=== PATIENT | female | born 1975 | race Caucasian/White ===

== ENCOUNTER 2020-01-20 16:54 | Emergency (ER) | payer OTHER ==
[2020-01-20 17:29] VITALS: BP 131/85; PULSE 66; TEMP 98.1; BMI 25.7
[2020-01-20] MEDS ORDERED: KETOROLAC TROMETHAMINE 30 MG/1 ML VIAL IM ONE (18:15)
[2020-01-20] MEDS ORDERED: KETOROLAC TROMETHAMINE 30 MG/1 ML VIAL ONE (18:16)
== END 2020-01-20 18:51 | disposition home or self-care (01) ==
LOC: JERFT 16:54 → JER 16:54 → JERFT 18:51
PROC: 3E0233Z Introduction of Anti-inflammatory into Muscle, Percutaneous Approach (ICD-10-PCS; principal; 2020-01-20)
DX: M54.42 Lumbago with sciatica, left side (principal)
CPT/HCPCS: 99284-25; C9803; U0003

== ENCOUNTER 2020-01-27 09:21 | Emergency (ER) | payer OTHER ==
[2020-01-27 09:37] VITALS: BP 140/93; PULSE 85; TEMP 98.3; BMI 24.7
== END 2020-01-27 10:10 | disposition left against medical advice (07) ==
LOC: JER 09:21
DX: F16.94 Hallucinogen use, unspecified with hallucinogen-induced mood disorder (principal)
CPT/HCPCS: 99281-25

== ENCOUNTER 2020-01-28 21:18 | Inpatient (IN) | payer OTHER ==
[2020-01-28 21:32] VITALS: BMI 25.7
[2020-01-28] MEDS ORDERED: SODIUM CHLORIDE 0.9% 500 ML INFUS.BAG IV ONE (22:09)
[2020-01-28] MEDS ORDERED: ACETAMINOPHEN 1000 MG/100 ML VIAL (NON FORMULARY) IVPB ONE (22:09)
[2020-01-28] MEDS ORDERED: LIDOCAINE 1%/EPI 1:100000 (50 ML MULTI DOSE VIAL) INF ONE (22:40)
[2020-01-28] MEDS ORDERED: ACETAMINOPHEN INJECTION 100 ML IVPB ONE (22:51)
[2020-01-28 23:00] LABS: BASO % 0.2 % (0-2.0); EOS % 3.9 % (0-4.5); HEMATOCRIT 39.1 % (32.4-45.2); LYMPH % 32.4 % (8-40); MCH 33.6 pg (25.7-33.7); MCHC 33.3 g/dl (32.0-36.0); MEAN PLT VOLUME 10.1 fl (7.5-11.1); MONO % 7.9 % (3.8-10.2); NEUT % 55.6 % (42.8-82.8); PLATELET COUNT 186 K/MM3 (134-434); RBC 3.88 M/mm3 (3.60-5.2); WHITE BLOOD COUNT 8.2 K/mm3 (4.0-10.0)
[2020-01-28 23:06] LABS: PROTHROMBIN TIME (PATIENT) 12.1 SEC (9.7-13.0)
[2020-01-28 23:09] LABS: ACTIVATED PTT 25.5 SECONDS (25.2-36.5)
[2020-01-28 23:16] LABS: CHLORIDE 102 mmol/L (98-107); POTASSIUM 3.6 mmol/L (3.5-5.1); SODIUM 139 mmol/L (136-145)
[2020-01-28 23:19] LABS: ALBUMIN 3.3 g/dl (3.4-5.0); ANION GAP 9 MMOL/L (8-16); CO2 28 mmol/L (21-32); GLUCOSE,RANDOM 133 mg/dL (74-106); MAGNESIUM 1.7 mg/dL (1.8-2.4)
[2020-01-28 23:22] LABS: CREATININE 0.8 mg/dL (0.55-1.3); SGPT/ALT 17 U/L (13-61)
[2020-01-28 23:23] LABS: SGOT/AST 16 U/L (15-37)
[2020-01-28 23:24] LABS: BILIRUBIN,TOTAL 0.2 mg/dL (0.2-1); TOT PROT 6.6 g/dl (6.4-8.2)
[2020-01-28 23:25] LABS: ALK PHOS 103 U/L (45-117)
[2020-01-28] MEDS ORDERED: MAGNESIUM SULF 50% (8.12 MEQ/2 ML-1 GM VIAL) IVPB ONE (23:29)
[2020-01-28] MEDS ORDERED: MAGNESIUM SULFATE IN WATER 2 GM/50 ML IVPB IVPB ONE (23:39)
[2020-01-29] MEDS ORDERED: ACETAMINOPHEN 325 MG TABLET (FP) PO PRN (03:11)
[2020-01-29] MEDS ORDERED: ACETAMINOPHEN 325 MG TABLET (FP) ONE (04:31)
[2020-01-29 07:57] LABS: COCAINE, UR NEGATIVE ng/ml (CUTOFF=300); URINE BENZODIAZEPINES NEGATIVE ng/ml (CUTOFF=200)
[2020-01-29 07:58] LABS: METHADONE, UR NEGATIVE ng/ml (CUTOFF=300); OPIATES, URI NEGATIVE ng/ml (CUTOFF=300); URINE AMPHETAMINES NEGATIVE ng/ml (CUTOFF=500)
[2020-01-29 07:59] LABS: HEMATOCRIT 35.4 % (32.4-45.2); MCH 33.9 pg (25.7-33.7); MCHC 33.8 g/dl (32.0-36.0); MEAN CELL VOLUME 100.1 fl (80-96); MEAN PLT VOLUME 9.8 fl (7.5-11.1); PLATELET COUNT 167 K/MM3 (134-434); RBC 3.53 M/mm3 (3.60-5.2); RDW 13.6 % (11.6-15.6); WHITE BLOOD COUNT 9.1 K/mm3 (4.0-10.0)
[2020-01-29 08:17] LABS: POTASSIUM 3.9 mmol/L (3.5-5.1)
[2020-01-29 08:21] LABS: ALBUMIN 3.3 g/dl (3.4-5.0); BLOOD UREA NITROGEN 13.4 mg/dL (7-18); CALCIUM 8.8 mg/dL (8.5-10.1); MAGNESIUM 2.2 mg/dL (1.8-2.4)
[2020-01-29 08:24] LABS: CREATININE 0.6 mg/dL (0.55-1.3)
[2020-01-29 08:25] LABS: PHOSPHOROUS 4.6 mg/dL (2.5-4.9)
[2020-01-29 08:26] LABS: BILIRUBIN,TOTAL 0.3 mg/dL (0.2-1); TOT PROT 6.2 g/dl (6.4-8.2)
[2020-01-29 08:31] LABS: PHENCYCLIDINE,URINE POSITIVE ng/ml (CUTOFF=25); URINE BARBITURATES POSITIVE ng/ml (CUTOFF=200)
[2020-01-29 08:34] LABS: PH,URINE 5.5 (5.0-8.0); URINE APPEARANCE CLEAR; URINE BILIRUBIN NEGATIVE (NEGATIVE); URINE COLOR YELLOW; URINE GLUCOSE (UA) NEGATIVE (NEGATIVE); URINE KETONE NEGATIVE (NEGATIVE); URINE LEUK ESTERASE NEGATIVE (NEGATIVE); URINE NITRITE NEGATIVE (NEGATIVE); URINE PROTEIN NEGATIVE (NEGATIVE)
[2020-01-29] MEDS: KETOROLAC TROMETHAMINE 15 MG/ML VIAL IVPUSH PRN ×2 (09:57→22:35)
[2020-01-29] MEDS: ENOXAPARIN NA (PORCINE) 40 MG/0.4 ML DISP.SYRIN SQ SCH (09:57)
[2020-01-30 07:53] LABS: POTASSIUM 4.1 mmol/L (3.5-5.1)
[2020-01-30 07:55] LABS: HEMOGLOBIN 11.2 GM/dL (10.7-15.3); MCH 34.1 pg (25.7-33.7); MEAN CELL VOLUME 100.4 fl (80-96); MEAN PLT VOLUME 10.1 fl (7.5-11.1); PLATELET COUNT 132 K/MM3 (134-434); RBC 3.28 M/mm3 (3.60-5.2); RDW 13.1 % (11.6-15.6); WHITE BLOOD COUNT 5.5 K/mm3 (4.0-10.0)
[2020-01-30 08:03] LABS: CALCIUM 8.3 mg/dL (8.5-10.1); MAGNESIUM 1.8 mg/dL (1.8-2.4)
[2020-01-30 08:06] LABS: CREATININE 0.7 mg/dL (0.55-1.3)
[2020-01-30 08:07] LABS: PHOSPHOROUS 3.6 mg/dL (2.5-4.9)
[2020-01-30 08:08] LABS: BILIRUBIN,TOTAL 0.2 mg/dL (0.2-1); TOT PROT 5.5 g/dl (6.4-8.2)
[2020-01-30] MEDS: KETOROLAC TROMETHAMINE 15 MG/ML VIAL IVPUSH PRN (08:40)
[2020-01-30 09:32] VITALS: BP 99/57; PULSE 57; TEMP 98.1
[2020-01-30] MEDS: ENOXAPARIN NA (PORCINE) 40 MG/0.4 ML DISP.SYRIN SQ SCH (09:59)
[2020-01-30] MEDS ORDERED: PRIMIDONE 50 MG TABLET PO SCH (22:00)
== END 2020-01-30 15:00 | disposition home or self-care (01) | DRG 204 ==
LOC: JER 21:18 → JERBED 01-29 01:29 → J4W 01-29 04:44
PROVIDERS: ADMIT Hospitalist; ATTEND Student in an Organized Health Care Education/Training Program
PROC: 0HQ1XZZ Repair Face Skin, External Approach (ICD-10-PCS; principal; 2020-01-28)
DX: R55 Syncope and collapse (principal); S01.112A Laceration without foreign body of left eyelid and periocular area, initial encounter; F12.10 Cannabis abuse, uncomplicated; F16.10 Hallucinogen abuse, uncomplicated; M54.16 Radiculopathy, lumbar region; R53.1 Weakness; K86.89 Other specified diseases of pancreas; F17.200 Nicotine dependence, unspecified, uncomplicated; G40.802 Other epilepsy, not intractable, without status epilepticus; S00.12XA Contusion of left eyelid and periocular area, initial encounter; W18.30XA Fall on same level, unspecified, initial encounter; Y92.098 Other place in other non-institutional residence as the place of occurrence of the external cause
CPT/HCPCS: 36415; 70450-TC; 70480-TC; 71045-TC-FY; 72125-TC; 80053; 80307; 81003; 82550; 83735; 84100; 84484; 84703; 85025; 85027; 85610; 85730; 86850; 86900; 86901; 93005; 93010; 93306-TC; 93880-TC; 97116-GP; 97161-GP; 99285-25; C9803; J0131; U0003

== ENCOUNTER 2020-03-24 20:25 | Emergency (ER) | payer OTHER ==
[2020-03-24 20:50] VITALS: BP 111/71; PULSE 98; TEMP 98.3; BMI 25.9
[2020-03-24] MEDS ORDERED: MAG HYDROX/AL HYDROX/SIMETH 30 ML UNIT-DOSE CUP PO ONE (21:13)
[2020-03-24] MEDS ORDERED: LACTATED RINGERS SOLUTION 1000 ML INFUS.BAG IV ONE (21:13)
[2020-03-24] MEDS ORDERED: FAMOTIDINE 20 MG/50 ML IVPB 20 MG/50 ML MG IVPB ONE ×2 (21:13→21:46)
[2020-03-24] MEDS ORDERED: METOCLOPRAMIDE HCL INJECTION 10 MG/2 ML VIAL IVPUSH ONE (21:27)
[2020-03-24] MEDS ORDERED: MAG HYDROX/AL HYDROX/SIMETH 30 ML UNIT-DOSE CUP ONE (21:46)
[2020-03-24] MEDS ORDERED: METOCLOPRAMIDE HCL INJECTION 10 MG/2 ML VIAL ONE (21:46)
[2020-03-24 21:50] LABS: BASO % 0.6 % (0-2.0); EOS % 1.4 % (0-4.5); HEMATOCRIT 40.4 % (32.4-45.2); LYMPH % 34.3 % (8-40); MCH 33.8 pg (25.7-33.7); MCHC 34.7 g/dl (32.0-36.0); MEAN CELL VOLUME 97.7 fl (80-96); MEAN PLT VOLUME 9.2 fl (7.5-11.1); MONO % 6.5 % (3.8-10.2); NEUT % 57.2 % (42.8-82.8); PLATELET COUNT 193 K/MM3 (134-434); RBC 4.14 M/mm3 (3.60-5.2); RDW 13.1 % (11.6-15.6); WHITE BLOOD COUNT 7.7 K/mm3 (4.0-10.0)
[2020-03-24 22:00] LABS: POTASSIUM 3.5 mmol/L (3.5-5.1)
[2020-03-24 22:03] LABS: BLOOD UREA NITROGEN 11.6 mg/dL (7-18); CALCIUM 9.6 mg/dL (8.5-10.1)
[2020-03-24 22:08] LABS: BILIRUBIN,TOTAL 0.4 mg/dL (0.2-1); TOT PROT 7.5 g/dl (6.4-8.2)
== END 2020-03-24 23:39 | disposition home or self-care (01) ==
LOC: JER 20:25
PROC: 3E033GC Introduction of Other Therapeutic Substance into Peripheral Vein, Percutaneous Approach (ICD-10-PCS; principal; 2020-03-24)
PROC: 3E033GC Introduction of Other Therapeutic Substance into Peripheral Vein, Percutaneous Approach (ICD-10-PCS; 2020-03-24)
DX: R11.2 Nausea with vomiting, unspecified (principal)
CPT/HCPCS: 36415; 80053; 83690; 84703; 85025; 99284-25; C9803; U0003

== ENCOUNTER 2020-06-19 14:35 | Emergency (ER) | payer OTHER ==
[2020-06-19 14:44] VITALS: BP 101/66; PULSE 73; TEMP 98.5; BMI 27.4
== END 2020-06-19 15:24 | disposition home or self-care (01) ==
LOC: JERFT 14:35
DX: T81.49XA Infection following a procedure, other surgical site, initial encounter (principal); Z11.52 Encounter for screening for COVID-19
CPT/HCPCS: 99283-25; C9803; U0003; U0005

== ENCOUNTER 2020-07-21 21:15 | Emergency (ER) | payer OTHER ==
[2020-07-21 21:19] VITALS: BP 122/77; PULSE 95; TEMP 98.6; BMI 26.5
[2020-07-21] MEDS ORDERED: ACETAMINOPHEN 325 MG TABLET (FP) PO ONE (21:45)
[2020-07-21] MEDS ORDERED: DIPHTH,PERTUSS(ACELL),TET 0.5 ML DISP.SYRIN IM ONE ×2 (21:45→21:46)
[2020-07-21] MEDS ORDERED: ACETAMINOPHEN 325 MG TABLET (FP) ONE (21:46)
[2020-07-21] MEDS ORDERED: KETOROLAC TROMETHAMINE 30 MG/1 ML VIAL IVPUSH ONE (23:10)
[2020-07-21] MEDS ORDERED: KETOROLAC TROMETHAMINE 30 MG/1 ML VIAL IM ONE (23:17)
[2020-07-21] MEDS ORDERED: KETOROLAC TROMETHAMINE 30 MG/1 ML VIAL ONE (23:44)
== END 2020-07-22 00:40 | disposition home or self-care (01) ==
LOC: JER 21:15
PROC: 3E0234Z Introduction of Serum, Toxoid and Vaccine into Muscle, Percutaneous Approach (ICD-10-PCS; principal; 2020-07-21)
PROC: 3E0233Z Introduction of Anti-inflammatory into Muscle, Percutaneous Approach (ICD-10-PCS; 2020-07-21)
DX: F10.920 Alcohol use, unspecified with intoxication, uncomplicated (principal); S80.211A Abrasion, right knee, initial encounter; S02.5XXA Fracture of tooth (traumatic), initial encounter for closed fracture
CPT/HCPCS: 70450-TC; 70486-TC; 73564-TC-LT-FY; 73564-TC-RT-FY; 90471; 90715; 99285-25

== ENCOUNTER 2020-11-13 18:58 | Emergency (ER) | payer OTHER ==
[2020-11-13 19:33] VITALS: BP 156/91; PULSE 88; TEMP 98.1; BMI 25.8
== END 2020-11-13 19:46 | disposition left against medical advice (07) ==
LOC: JER 18:58
DX: R41.82 Altered mental status, unspecified (principal)
CPT/HCPCS: 99281-25

== ENCOUNTER 2020-11-14 15:53 | Inpatient (IN) | payer OTHER ==
[2020-11-14 14:11] VITALS: BMI 27.1
[2020-11-14] MEDS ORDERED: NICOTINE 10 MG CARTRIDGE (INHALER) IH PRN (19:17)
[2020-11-14] MEDS ORDERED: IBUPROFEN 400 MG TABLET (FP) PO PRN (19:17)
[2020-11-14] MEDS ORDERED: LOPERAMIDE HCL 2 MG CAPSULE PO PRN (19:17)
[2020-11-14] MEDS ORDERED: guaiFENesin 200 MG/10 ML 10 ML UNIT-DOSE CUPS PO PRN (19:17)
[2020-11-14] MEDS ORDERED: ACETAMINOPHEN 325 MG TABLET (FP) PO PRN (19:17)
[2020-11-14] MEDS ORDERED: MAGNESIUM HYDROX 2400MG/30ML ORAL SUSPENSION 30 ML CUP PO PRN (19:17)
[2020-11-14] MEDS ORDERED: MAGNESIUM CITRATE 300 ML BOTTLE PO PRN (19:17)
[2020-11-14] MEDS ORDERED: MAG HYDROX/AL HYDROX/SIMETH 30 ML UNIT-DOSE CUP PO PRN (19:17)
[2020-11-14] MEDS ORDERED: P-EPHED 60MG/TRIPROLIDI 2.5MG TABLET PO PRN (19:17)
[2020-11-14] MEDS ORDERED: PATIENT'S OWN MEDICATION (NON-FORMULARY) (Butalb/Acetaminophen/Caffeine [Fioricet 50-300-4 PO PRN (19:23)
[2020-11-14] MEDS ORDERED: TUBERCULIN PPD 5 TU/0.1ML VIAL ID ONE (21:03)
[2020-11-14] MEDS: MELATONIN 5 MG TABLETS PO SCH (22:23)
[2020-11-14] MEDS: hydrOXYzine PAMOATE 25 MG CAPSULE (FP) PO SCH (22:24)
[2020-11-14] MEDS: THIAMINE HCL 100 MG TABLET (FP) PO SCH (22:24)
[2020-11-14] MEDS: NICOTINE 14 MG/24 HOURS TOPICAL PATCH TD SCH (22:34)
[2020-11-15] MEDS: hydrOXYzine PAMOATE 25 MG CAPSULE (FP) PO SCH ×5 (06:33→23:30)
[2020-11-15 07:18] VITALS: BP 163/99; PULSE 66; TEMP 97.6
[2020-11-15 08:01] LABS: CALCIUM 9.1 mg/dL (8.5-10.1)
[2020-11-15 08:02] LABS: ALBUMIN 3.6 g/dl (3.4-5.0); BLOOD UREA NITROGEN 7.9 mg/dL (7-18); HEMATOCRIT 40.3 % (32.4-45.2); HEMOGLOBIN 13.9 GM/dL (10.7-15.3); MCH 34.4 pg (25.7-33.7); MCHC 34.6 g/dl (32.0-36.0); MEAN CELL VOLUME 99.4 fl (80-96); MEAN PLT VOLUME 8.8 fl (7.5-11.1); PLATELET COUNT 190 10^3/uL (134-434); RBC 4.05 M/mm3 (3.60-5.2); RDW 13.8 % (11.6-15.6); WHITE BLOOD COUNT 5.3 K/mm3 (4.0-10.0)
[2020-11-15 08:06] LABS: BILIRUBIN,TOTAL 0.5 mg/dL (0.2-1); TOT PROT 7.1 g/dl (6.4-8.2)
[2020-11-15 08:27] LABS: SYPHILIS W/ RPR CONF NON-REACTIVE (NONREACTIVE)
[2020-11-15] MEDS ORDERED: PRIMIDONE 50 MG TABLET PO SCH (10:00)
[2020-11-15] MEDS ORDERED: EXEMESTANE 25 MG TABLET PO SCH (10:00)
[2020-11-15] MEDS ORDERED: PANTOPRAZOLE 40 MG TABLET PO SCH (10:00)
[2020-11-15] MEDS ORDERED: FLUoxetine HCL 20 MG CAPSULE PO SCH (10:30)
[2020-11-15] MEDS ORDERED: DEXTROAMPHETAMINE/AMPHETAMINE 10 MG CAP.ER.24H PO SCH (10:45)
[2020-11-15] MEDS: NICOTINE 14 MG/24 HOURS TOPICAL PATCH TD SCH (11:01)
[2020-11-15] MEDS: GABAPENTIN 300 MG CAPSULE PO SCH ×2 (13:32→23:30)
[2020-11-15] MEDS: MELATONIN 5 MG TABLETS PO SCH (23:30)
[2020-11-15] MEDS: THIAMINE HCL 100 MG TABLET (FP) PO SCH (23:30)
[2020-11-16] MEDS ORDERED: LIPASE/PROTEASE/AMYLASE 36,000 UNIT CAPSULE PO SCH (07:00)
[2020-11-16] MEDS: GABAPENTIN 300 MG CAPSULE PO SCH (08:04)
[2020-11-16] MEDS: hydrOXYzine PAMOATE 25 MG CAPSULE (FP) PO SCH (08:04)
== END 2020-11-16 08:50 | disposition left against medical advice (07) | DRG 770 ==
LOC: YASAS 15:53 → Y5N 19:01
PROVIDERS: ADMIT Allergy & Immunology; ATTEND Allergy & Immunology
PROC: HZ42ZZZ Group Counseling for Substance Abuse Treatment, Cognitive-Behavioral (ICD-10-PCS; principal; 2020-11-14)
DX: F10.20 Alcohol dependence, uncomplicated (principal); F16.20 Hallucinogen dependence, uncomplicated; F12.20 Cannabis dependence, uncomplicated; F17.210 Nicotine dependence, cigarettes, uncomplicated; F19.282 Other psychoactive substance dependence with psychoactive substance-induced sleep disorder; F19.24 Other psychoactive substance dependence with psychoactive substance-induced mood disorder; F60.3 Borderline personality disorder; F41.9 Anxiety disorder, unspecified; F32.9 Major depressive disorder, single episode, unspecified; F43.10 Post-traumatic stress disorder, unspecified; K86.81 Exocrine pancreatic insufficiency; K21.9 Gastro-esophageal reflux disease without esophagitis; Z87.19 Personal history of other diseases of the digestive system; Z85.3 Personal history of malignant neoplasm of breast; Z91.410 Personal history of adult physical and sexual abuse
CPT/HCPCS: 36415; 80053; 81025; 85027; 86780; 86803; C9803; U0003; U0005

== ENCOUNTER 2021-03-09 23:10 | Emergency (ER) | payer OTHER ==
[2021-03-09 23:27] VITALS: BMI 26.5
[2021-03-09 23:49] LABS: BASO % 0.3 % (0-2.0); EOS % 2.5 % (0-4.5); HEMATOCRIT 38.1 % (32.4-45.2); HEMOGLOBIN 13.2 GM/dL (10.7-15.3); LYMPH % 28.6 % (8-40); MCH 33.2 pg (25.7-33.7); MCHC 34.5 g/dl (32.0-36.0); MEAN CELL VOLUME 96.1 fl (80-96); MEAN PLT VOLUME 8.6 fl (7.5-11.1); MONO % 9.1 % (3.8-10.2); NEUT % 59.5 % (42.8-82.8); PLATELET COUNT 195 10^3/uL (134-434); RBC 3.97 M/mm3 (3.60-5.2); RDW 13.9 % (11.6-15.6); WHITE BLOOD COUNT 6.7 K/mm3 (4.0-10.0)
[2021-03-09 23:55] LABS: INR 0.97 (0.83-1.09); PROTHROMBIN TIME (PATIENT) 11.2 SEC (9.7-13.0)
[2021-03-09 23:58] LABS: ACTIVATED PTT 26.3 SECONDS (25.2-36.5)
[2021-03-10] LABS: CHLORIDE 103 mmol/L (98-107); SODIUM 137 mmol/L (136-145)
[2021-03-10 00:03] LABS: ANION GAP 4 MMOL/L (8-16); BLOOD UREA NITROGEN 13.4 mg/dL (7-18); CALCIUM 9.5 mg/dL (8.5-10.1); CO2 29 mmol/L (21-32)
[2021-03-10 00:04] LABS: ALBUMIN 3.8 g/dl (3.4-5.0); GLUCOSE,RANDOM 102 mg/dL (74-106)
[2021-03-10 00:07] LABS: SGOT/AST 15 U/L (15-37); SGPT/ALT 22 U/L (13-61)
[2021-03-10 00:08] LABS: BILIRUBIN,TOTAL 0.4 mg/dL (0.2-1); TOT PROT 7.2 g/dl (6.4-8.2)
[2021-03-10 00:09] LABS: ALK PHOS 109 U/L (45-117)
[2021-03-10] MEDS ORDERED: SODIUM CHLORIDE 0.9% 500 ML INFUS.BAG IV ONE (03:55)
[2021-03-10] MEDS ORDERED: ACETAMINOPHEN INJECTION 100 ML IVPB ONE (04:02)
[2021-03-10] MEDS ORDERED: ACETAMINOPHEN 1000 MG/100 ML BAG IVPB ONE (04:02)
[2021-03-10 07:03] VITALS: TEMP 97.3
[2021-03-10 08:07] VITALS: BP 133/90; PULSE 76
== END 2021-03-10 10:17 | disposition home or self-care (01) ==
LOC: JER 23:10
PROC: 3E0333Z Introduction of Anti-inflammatory into Peripheral Vein, Percutaneous Approach (ICD-10-PCS; principal; 2021-03-09)
DX: R26.2 Difficulty in walking, not elsewhere classified (principal)
CPT/HCPCS: 36415; 70450-TC; 71045-TC-FY; 72125-TC; 80053; 80307; 82550; 84484; 84703; 85025; 85610; 85730; 93005; 93010; 99285-25; J0131

== ENCOUNTER 2021-03-25 18:24 | Emergency (ER) | payer OTHER ==
[2021-03-25 18:40] VITALS: TEMP 98.3; BMI 27.9
[2021-03-25] MEDS ORDERED: ACETAMINOPHEN 1000 MG/100 ML BAG IVPB ONE (19:27)
[2021-03-25] MEDS ORDERED: ACETAMINOPHEN INJECTION 100 ML IVPB ONE (20:00)
[2021-03-25] MEDS ORDERED: ACETAMINOPHEN 500 MG TABLET (FP) PO ONE (20:18)
[2021-03-25] MEDS ORDERED: KETOROLAC TROMETHAMINE 30 MG/1 ML VIAL IM ONE (20:19)
[2021-03-25] MEDS ORDERED: KETOROLAC TROMETHAMINE 30 MG/1 ML VIAL ONE (20:30)
[2021-03-25] MEDS ORDERED: ACETAMINOPHEN 500 MG TABLET (FP) ONE (20:34)
[2021-03-25 21:25] LABS: BASO % 0.2 % (0-2.0); HEMATOCRIT 37.1 % (32.4-45.2); HEMOGLOBIN 12.8 GM/dL (10.7-15.3); LYMPH % 33.1 % (8-40); MCH 33.4 pg (25.7-33.7); MCHC 34.6 g/dl (32.0-36.0); MEAN CELL VOLUME 96.7 fl (80-96); MEAN PLT VOLUME 8.2 fl (7.5-11.1); MONO % 9.2 % (3.8-10.2); NEUT % 55.5 % (42.8-82.8); PLATELET COUNT 195 10^3/uL (134-434); RBC 3.84 M/mm3 (3.60-5.2); RDW 14.4 % (11.6-15.6); WHITE BLOOD COUNT 7.4 K/mm3 (4.0-10.0)
[2021-03-25 21:26] LABS: INR 0.93 (0.83-1.09); PROTHROMBIN TIME (PATIENT) 10.7 SEC (9.7-13.0)
[2021-03-25 21:29] LABS: ACTIVATED PTT 24.9 SECONDS (25.2-36.5)
[2021-03-25 21:46] LABS: ALBUMIN 3.7 g/dl (3.4-5.0); CALCIUM 9.2 mg/dL (8.5-10.1); MAGNESIUM 2.1 mg/dL (1.8-2.4)
[2021-03-25 21:48] LABS: CREATININE 0.8 mg/dL (0.55-1.3)
[2021-03-25 21:49] LABS: BILIRUBIN,TOTAL 0.3 mg/dL (0.2-1); TOT PROT 7.2 g/dl (6.4-8.2)
[2021-03-25 23:14] VITALS: BP 121/78; PULSE 70
== END 2021-03-26 01:18 | disposition home or self-care (01) ==
LOC: JERFT 18:24 → JER 18:24
PROC: 3E0233Z Introduction of Anti-inflammatory into Muscle, Percutaneous Approach (ICD-10-PCS; principal; 2021-03-25)
DX: S42.291A Other displaced fracture of upper end of right humerus, initial encounter for closed fracture (principal); R55 Syncope and collapse; W01.0XXA Fall on same level from slipping, tripping and stumbling without subsequent striking against object, initial encounter
CPT/HCPCS: 36415; 71046-TC-FY; 71101-TC-RT-FY; 73010-TC-FY; 73030-TC-RT-FY; 80053; 82550; 83735; 84484; 84703; 85025; 85610; 85730; 93005; 93010; 99285-25

== ENCOUNTER 2021-06-04 21:00 | Emergency (ER) | payer OTHER ==
[2021-06-04 21:19] VITALS: BP 147/92; PULSE 79; TEMP 97.7; BMI 28.9
[2021-06-04 22:49] LABS: BASO % 0.3 % (0-2.0); EOS % 5.2 % (0-4.5); HEMATOCRIT 37.1 % (32.4-45.2); HEMOGLOBIN 13.2 GM/dL (10.7-15.3); LYMPH % 36.8 % (8-40); MCH 34.3 pg (25.7-33.7); MCHC 35.6 g/dl (32.0-36.0); MEAN CELL VOLUME 96.3 fl (80-96); MEAN PLT VOLUME 8.8 fl (7.5-11.1); MONO % 7.2 % (3.8-10.2); NEUT % 50.5 % (42.8-82.8); PLATELET COUNT 191 10^3/uL (134-434); RBC 3.85 M/mm3 (3.60-5.2); RDW 13.2 % (11.6-15.6); WHITE BLOOD COUNT 4.8 K/mm3 (4.0-10.0)
[2021-06-04 23:15] LABS: CALCIUM 9.2 mg/dL (8.5-10.1)
[2021-06-04 23:16] LABS: ALBUMIN 3.6 g/dl (3.4-5.0); BLOOD UREA NITROGEN 18.1 mg/dL (7-18); MAGNESIUM 1.9 mg/dL (1.8-2.4)
[2021-06-04 23:19] LABS: CREATININE 1.1 mg/dL (0.55-1.3)
[2021-06-04 23:21] LABS: BILIRUBIN,TOTAL 0.3 mg/dL (0.2-1); TOT PROT 7.1 g/dl (6.4-8.2)
[2021-06-05] MEDS ORDERED: KETOROLAC TROMETHAMINE 30 MG/1 ML VIAL IVPUSH ONE (00:43)
[2021-06-05] MEDS ORDERED: KETOROLAC TROMETHAMINE 15 MG/ML VIAL ONE (00:45)
[2021-06-05] MEDS ORDERED: KETOROLAC TROMETHAMINE 30 MG/1 ML VIAL IM ONE (00:52)
== END 2021-06-05 01:25 | disposition home or self-care (01) ==
LOC: JER 21:00
PROC: 3E0233Z Introduction of Anti-inflammatory into Muscle, Percutaneous Approach (ICD-10-PCS; principal; 2021-06-04)
DX: F16.129 Hallucinogen abuse with intoxication, unspecified (principal); R41.82 Altered mental status, unspecified
CPT/HCPCS: 36415; 70450-TC; 80053; 80307; 83735; 84484; 85025; 93005; 93010; 99285-25

== ENCOUNTER 2021-07-09 17:51 | Emergency (ER) | payer OTHER ==
[2021-07-09 18:10] VITALS: BP 101/74; PULSE 83; TEMP 97.9; BMI 26.5
[2021-07-09] MEDS ORDERED: KETOROLAC TROMETHAMINE 30 MG/1 ML VIAL IM ONE (18:58)
[2021-07-09] MEDS ORDERED: KETOROLAC TROMETHAMINE 30 MG/1 ML VIAL ONE (19:20)
== END 2021-07-09 20:35 | disposition home or self-care (01) ==
LOC: JER 17:51
PROC: 3E0233Z Introduction of Anti-inflammatory into Muscle, Percutaneous Approach (ICD-10-PCS; principal; 2021-07-09)
DX: S06.0X0A Concussion without loss of consciousness, initial encounter (principal); S01.81XA Laceration without foreign body of other part of head, initial encounter; W01.0XXA Fall on same level from slipping, tripping and stumbling without subsequent striking against object, initial encounter
CPT/HCPCS: 70450-TC; 73030-TC-RT-FY; 99284-25

== ENCOUNTER 2021-07-10 20:18 | Emergency (ER) | payer OTHER ==
[2021-07-10 21:05] VITALS: BP 112/78; PULSE 67; TEMP 98.3; BMI 26.5
[2021-07-10] MEDS ORDERED: traMADol HCL 50 MG TABLET PO ONE (21:29)
[2021-07-10] MEDS ORDERED: KETOROLAC TROMETHAMINE 30 MG/1 ML VIAL IM ONE (21:29)
[2021-07-10] MEDS ORDERED: KETOROLAC TROMETHAMINE 30 MG/1 ML VIAL ONE (21:30)
[2021-07-10] MEDS ORDERED: traMADol HCL 50 MG TABLET ONE (21:30)
== END 2021-07-10 22:00 | disposition home or self-care (01) ==
LOC: JER 20:18
PROC: 3E0233Z Introduction of Anti-inflammatory into Muscle, Percutaneous Approach (ICD-10-PCS; principal; 2021-07-10)
DX: M70.21 Olecranon bursitis, right elbow (principal); S80.211A Abrasion, right knee, initial encounter
CPT/HCPCS: 73070-TC-RT-FY; 73562-TC-RT-FY; 99284-25

== ENCOUNTER 2021-11-29 20:29 | Emergency (ER) | payer OTHER ==
[2021-11-29 20:37] VITALS: BP 125/78; PULSE 79; RESP 18; TEMP 98.1; BMI 28.3
[2021-11-29] MEDS ORDERED: KETOROLAC TROMETHAMINE 30 MG/1 ML VIAL IVPB ONE (21:40)
[2021-11-29] MEDS ORDERED: METOCLOPRAMIDE HCL INJECTION 10 MG/2 ML VIAL IVPUSH ONE (21:40)
[2021-11-29] MEDS ORDERED: SODIUM CHLORIDE 0.9% 500 ML INFUS.BAG IV ONE (21:42)
[2021-11-29] MEDS ORDERED: KETOROLAC TROMETHAMINE 30 MG/1 ML VIAL ONE (21:46)
[2021-11-29] MEDS ORDERED: METOCLOPRAMIDE HCL INJECTION 10 MG/2 ML VIAL ONE (21:46)
== END 2021-11-29 22:44 | disposition home or self-care (01) ==
LOC: JERFT 20:29
PROC: 3E0333Z Introduction of Anti-inflammatory into Peripheral Vein, Percutaneous Approach (ICD-10-PCS; principal; 2021-11-29)
PROC: 3E033GC Introduction of Other Therapeutic Substance into Peripheral Vein, Percutaneous Approach (ICD-10-PCS; 2021-11-29)
DX: R51.9 Headache, unspecified (principal)
CPT/HCPCS: 99284-25

== ENCOUNTER 2022-07-08 10:09 | Emergency (ER) | payer OTHER ==
[2022-07-08] MEDS ORDERED: ACETAMINOPHEN 500 MG TABLET (FP) PO ONE (11:00)
[2022-07-08] MEDS ORDERED: TETANUS AND DIPHTHERIA TOXOID 0.5 ML DISP.SYRIN IM ONE (11:00)
[2022-07-08 11:04] VITALS: BMI 27.4
[2022-07-08] MEDS ORDERED: ACETAMINOPHEN 500 MG TABLET (FP) ONE (11:56)
[2022-07-08] MEDS ORDERED: DIPHTH,PERTUSS(ACELL),TET 0.5 ML DISP.SYRIN IM ONE (11:57)
[2022-07-08] MEDS ORDERED: BACITRACIN ZINC 15 GM TUBE TOPICAL OINTMENT TP ONE (13:23)
[2022-07-08] MEDS ORDERED: BACITRACIN 0.9 GM PACKET ONE (13:37)
[2022-07-08 14:28] VITALS: BP 127/90; PULSE 70; RESP 20; TEMP 98.1
== END 2022-07-08 14:30 | disposition home or self-care (01) ==
LOC: JER 10:09
PROC: 3E0234Z Introduction of Serum, Toxoid and Vaccine into Muscle, Percutaneous Approach (ICD-10-PCS; principal; 2022-07-08)
DX: S50.312A Abrasion of left elbow, initial encounter (principal); M25.561 Pain in right knee; M25.521 Pain in right elbow; S80.211A Abrasion, right knee, initial encounter; W19.XXXA Unspecified fall, initial encounter
CPT/HCPCS: 73070-TC-LT-FY; 73562-TC-RT-FY; 82962; 90471; 93005; 93010; 99284-25

== ENCOUNTER 2023-06-22 20:30 | Emergency (ER) | payer OTHER ==
[2023-06-22 20:47] VITALS: BP 102/65; PULSE 107; RESP 19; TEMP 98.2; BMI 20.5
== END 2023-06-22 21:12 | disposition left against medical advice (07) ==
LOC: JER 20:30
DX: F10.10 Alcohol abuse, uncomplicated (principal); R11.0 Nausea
CPT/HCPCS: 99283-25